=== PATIENT | male | born 1995 | race Two or more races ===

== ENCOUNTER 2020-07-06 14:03 | Inpatient (IN) | payer MEDICAID, OTHER ==
[2020-07-06] VITALS (8 sets, daily range): BP systolic 113–134; BP diastolic 61–79
[~2020-07-06] VITALS: Ht 180.3 cm; Wt 43.0 kg
[2020-07-06 14:41] LABS: Eosinophils # (auto) 0 10 ^3/uL (0-0.8); Eosinophils % (auto) 0.2 % (0.0-7.0); Monocytes # (auto) 0.6 10 ^3/uL (0-1.3)
[2020-07-06 14:43] LABS: Basophils # (auto) 0.1 10 ^3/uL (0-0.2); Basophils % (auto) 0.6 % (0.0-2.0); Hematocrit 21.2 % (41.0-53.0); Lymphocytes # (auto) 1.2 10 ^3/uL (0.4-5.4); Lymphocytes % (auto) 13.1 % (10.0-50.0); Mean Corpuscular Hemoglobin 17.8 pg (28.0-32.0); Mean Corpuscular Volume 61.1 fL (80.0-100.0); Neutrophils # (auto) 7.4 10 ^3/uL (1.6-8.6); Neutrophils % (auto) 80.1 % (37.0-80.0); Red Blood Cells 3.46 10^6/uL (4.5-5.90); Red Cell Distribution Width 19.4 % (11.8-14.3); White Blood Cell 9.2 10^3/uL (4.4-10.8)
[2020-07-06 14:56] LABS: Alanine Aminotransferase 18 U/L (16-61); Anion Gap 9 (5-15); Aspartate Aminotransferase 9 U/L (15-37); BUN/Creatinine Ratio 8.2; Blood Urea Nitrogen 8 mg/dL (7-18); Calcium 8.4 mg/dL (8.5-10.1); Carbon Dioxide 22 mmol/L (21-32); Chloride 109 mmol/L (98-107); GFR African American 121 mL/min; GFR Non-African American 100 mL/min; Glucose 92 mg/dL (74-106); Hemoglobin 6.1 g/dL (13.5-17.5); Potassium 3.6 mmol/L (3.5-5.1); Sodium 140 mmol/L (136-145)
[2020-07-06 15:00] LABS: Alkaline Phosphatase 71 U/L (45-117); Bilirubin, Total 0.4 mg/dL (0.2-1.0); Total Protein 7.4 g/dL (6.4-8.2)
[2020-07-06] MEDS ORDERED: ONDANSETRON HCL 4 MG/2 ML VIAL IV PRN (18:30)
[2020-07-06] MEDS ORDERED: MORPHINE SULFATE INJECTION 2 MG/ML SYRG IV PRN (18:30)
[2020-07-06] MEDS ORDERED: SODIUM CHLORIDE 0.9% 1,000 ML IV ONE (18:30)
[2020-07-06] MEDS ORDERED: FAMOTIDINE (10MG/ML) 2ML VL IV ONE (18:45)
[2020-07-06] MEDS ORDERED: methylPREDNISolone SOD SUCC 125 MG/2 ML VL IV ONE (18:45)
[2020-07-06] MEDS ORDERED: ACETAMINOPHEN 500 MG TAB PO ONE (18:45)
[2020-07-06] MEDS ORDERED: ALBUTEROL SULF 2.5 MG/0.5ML(0.5%) NEB SOLN NEB ONE (18:45)
[2020-07-06] MEDS ORDERED: diphenhdrAMINE HCL 50 MG/1 ML VL IV ONE (18:45)
[2020-07-06] MEDS ORDERED: GOLYTELY 4L KIT PO ONE (23:00)
[2020-07-06] MEDS ORDERED: MAGNESIUM CITRATE SOLUTION 300 ML BTL PO ONE (23:00)
[2020-07-07 02:24] LABS: INR 1.07 (0.9-1.15); Partial Thromboplastin Time 20.1 sec (23.0-31.2)
[2020-07-07 02:31] LABS: Urine Bacteria NONE SEEN /hpf (None Seen); Urine Blood Negative /uL (Negative); Urine Specific Gravity 1.007 (1.001-1.035); Urine WBC <1 /hpf (0 - 3)
[2020-07-07] MEDS ORDERED: NORPTMEDS (02:56)
[2020-07-07] MEDS ORDERED: GOLYTELY 4L KIT PO ONE (06:00)
[2020-07-07] MEDS ORDERED: MAGNESIUM CITRATE SOLUTION 300 ML BTL PO ONE (06:00)
[2020-07-07 08:03] LABS: INR 1.08 (0.9-1.15); Partial Thromboplastin Time < 20.0 sec (23.0-31.2)
[2020-07-07 08:04] LABS: Basophils # (auto) 0 10 ^3/uL (0-0.2); Basophils % (auto) 0.2 % (0.0-2.0); Eosinophils # (auto) 0 10 ^3/uL (0-0.8); Eosinophils % (auto) 0.1 % (0.0-7.0); Hematocrit 25.7 % (41.0-53.0); Hemoglobin 7.7 g/dL (13.5-17.5); Lymphocytes # (auto) 0.7 10 ^3/uL (0.4-5.4); Lymphocytes % (auto) 5.7 % (10.0-50.0); Mean Corpuscular Hgb Conc. 29.9 g/dL (32.0-36.0); Mean Corpuscular Volume 63.4 fL (80.0-100.0); Monocytes # (auto) 0.3 10 ^3/uL (0-1.3); Monocytes % (auto) 2.3 % (0.0-12.0); Neutrophils # (auto) 10.8 10 ^3/uL (1.6-8.6); Neutrophils % (auto) 91.7 % (37.0-80.0); Nucleated Red Blood Cells % 0.1 %; Red Blood Cells 4.06 10^6/uL (4.5-5.90); Red Cell Distribution Width 22.1 % (11.8-14.3); White Blood Cell 11.8 10^3/uL (4.4-10.8)
[2020-07-07] MEDS ORDERED: SODIUM CHLORIDE LOCK 10 ML ONE (08:10)
[2020-07-07 09:00] VITALS: BP 121/77
[2020-07-07] MEDS: PANTOPRAZOLE 40 MG TAB PO SCH (09:44)
[2020-07-07 13:00] VITALS: BP 124/68
[2020-07-07] MEDS ORDERED: LIDOCAINE VISCOUS 2% 15ML UD ONE (15:57)
[2020-07-07] MEDS: MIDAZOLAM HCL 5 MG/ML-1ML VIAL ONE ×5 (16:16→16:35)
[2020-07-07] MEDS: fentaNYL CITRATE 100 MCG/2 ML VL ONE ×4 (16:16→16:34)
[2020-07-07] MEDS: diphenhdrAMINE HCL 50 MG/1 ML VL ONE ×2 (16:16→16:19)
[2020-07-07 19:05] LABS: % Iron Saturation 2.4 % (20-55)
[2020-07-07 19:06] LABS: Folate (Folic Acid) 12.17 ng/mL (5.38-24)
[2020-07-07 20:00] VITALS: BP 122/59
[2020-07-07 22:00] VITALS: BP 122/59
[2020-07-08] VITALS (10 sets, daily range): BP systolic 103–138; BP diastolic 59–83
[2020-07-08 06:36] LABS: Basophils # (auto) 0 10 ^3/uL (0-0.2); Basophils % (auto) 0.2 % (0.0-2.0); Eosinophils # (auto) 0 10 ^3/uL (0-0.8); Eosinophils % (auto) 0.2 % (0.0-7.0); Lymphocytes # (auto) 2.3 10 ^3/uL (0.4-5.4); Monocytes # (auto) 0.7 10 ^3/uL (0-1.3); Neutrophils # (auto) 7.2 10 ^3/uL (1.6-8.6); Nucleated Red Blood Cells % 0.1 %
[2020-07-08 06:38] LABS: Hematocrit 23.7 % (41.0-53.0); Hemoglobin 7.1 g/dL (13.5-17.5); Lymphocytes % (auto) 22.4 % (10.0-50.0); Mean Corpuscular Hemoglobin 19.2 pg (28.0-32.0); Mean Corpuscular Hgb Conc. 30.1 g/dL (32.0-36.0); Mean Corpuscular Volume 63.8 fL (80.0-100.0); Monocytes % (auto) 6.7 % (0.0-12.0); Neutrophils % (auto) 70.5 % (37.0-80.0); Red Blood Cells 3.72 10^6/uL (4.5-5.90); White Blood Cell 10.2 10^3/uL (4.4-10.8)
[2020-07-08] MEDS: PANTOPRAZOLE 40 MG TAB PO SCH (09:44)
[2020-07-08] MEDS ORDERED: ACETAMINOPHEN 500 MG TAB PO PRN (10:15)
[2020-07-08] MEDS ORDERED: SODIUM FERR GLUC 62.5MG/5ML 125 MG in SODIUM CHL 0.9% 100 ML IV SCH (12:00)
[2020-07-08] MEDS ORDERED: HYDR25SU13 RE (14:54)
[2020-07-08] MEDS ORDERED: PANT40T PO (14:54)
[2020-07-08] MEDS ORDERED: FER325T PO (14:58)
[2020-07-08 16:38] LABS: Hemoglobin 8.8 g/dL (13.5-17.5)
[2020-07-08 16:40] LABS: Hematocrit 28.3 % (41.0-53.0)
== END 2020-07-08 17:55 | disposition home or self-care (01) | DRG 254 ==
LOC: ER 14:03 → OVERFLOW 18:22 → CENTRAL 22:18
PROVIDERS: ADMIT Nurse Practitioner Acute Care; ATTEND Internal Medicine
PROC: 30230N1 Transfusion of Nonautologous Red Blood Cells into Peripheral Vein, Open Approach (ICD-10-PCS; principal; 2020-07-06)
PROC: 0DB98ZX Excision of Duodenum, Via Natural or Artificial Opening Endoscopic, Diagnostic (ICD-10-PCS; 2020-07-07)
PROC: 0DB68ZX Excision of Stomach, Via Natural or Artificial Opening Endoscopic, Diagnostic (ICD-10-PCS; 2020-07-07)
PROC: 0DB38ZX Excision of Lower Esophagus, Via Natural or Artificial Opening Endoscopic, Diagnostic (ICD-10-PCS; 2020-07-07)
PROC: 0DJD8ZZ Inspection of Lower Intestinal Tract, Via Natural or Artificial Opening Endoscopic (ICD-10-PCS; 2020-07-07 16:10)
DX: K64.8 Other hemorrhoids (principal); K22.11 Ulcer of esophagus with bleeding; R65.10 Systemic inflammatory response syndrome (SIRS) of non-infectious origin without acute organ dysfunction; K29.61 Other gastritis with bleeding; K62.5 Hemorrhage of anus and rectum; K44.9 Diaphragmatic hernia without obstruction or gangrene; D50.9 Iron deficiency anemia, unspecified; Z20.822 Contact with and (suspected) exposure to COVID-19
CPT/HCPCS: 36415; 36430; 43239; 45378; 74176; 80053; 81001; 82607; 82746; 83540; 83550; 84484; 85014; 85018; 85025; 85610; 85730; 86850; 86900; 86901; 86920; 87426; 93005; 94640; 96361; 96374; 96375; G0378; J2250; J2405; J3490

== ENCOUNTER 2021-03-04 14:37 | Emergency (ER) | payer MEDICAID ==
[~2021-03-04] VITALS: Ht 180.3 cm; Wt 86.2 kg
[2021-03-04 14:37] VITALS: BP 110/77
[~2021-03-04 14:37] MED LIST: FER325T PO; HYDR25SU13 RE; PANT40T PO
[2021-03-04] MEDS ORDERED: PANTOPRAZOLE 40 MG/10 ML VIAL INJ IV ONE (16:45)
[2021-03-04 18:09] LABS: Basophils # (auto) 0 10 ^3/uL (0-0.2); Eosinophils # (auto) 0 10 ^3/uL (0-0.8); Eosinophils % (auto) 0.4 % (0.0-7.0)
[2021-03-04 18:10] LABS: Basophils % (auto) 0.3 % (0.0-2.0); Hematocrit 38.5 % (41.0-53.0); Hemoglobin 12.2 g/dL (13.5-17.5); Lymphocytes # (auto) 1.6 10 ^3/uL (0.4-5.4); Lymphocytes % (auto) 15.8 % (10.0-50.0); Mean Corpuscular Hemoglobin 24.2 pg (28.0-32.0); Mean Corpuscular Hgb Conc. 31.6 g/dL (32.0-36.0); Mean Corpuscular Volume 76.5 fL (80.0-100.0); Monocytes # (auto) 0.5 10 ^3/uL (0-1.3); Monocytes % (auto) 5.4 % (0.0-12.0); Neutrophils # (auto) 7.8 10 ^3/uL (1.6-8.6); Neutrophils % (auto) 78.1 % (37.0-80.0); Nucleated Red Blood Cells % 0.1 %; Red Blood Cells 5.04 10^6/uL (4.5-5.90); Red Cell Distribution Width 16.1 % (11.8-14.3); White Blood Cell 9.9 10^3/uL (4.4-10.8)
[2021-03-04 18:26] LABS: Albumin 4.5 g/dL (3.4-5.0); Calcium 8.9 mg/dL (8.5-10.1); Potassium 3.4 mmol/L (3.5-5.1)
[2021-03-04 18:29] LABS: BUN/Creatinine Ratio 10.1; Bilirubin, Total 0.5 mg/dL (0.2-1.0)
== END 2021-03-04 19:46 | disposition home or self-care (01) ==
LOC: ER 14:37
DX: K62.5 Hemorrhage of anus and rectum (principal)
CPT/HCPCS: 36415; 74176; 80053; 85025